=== PATIENT | male | born 1945 | race Caucasian/White ===

== ENCOUNTER → 2017-10-18 11:28 | Outpatient (CLI) | payer MEDICARE, SELFPAY ==
--- NOTE | 2017-10-18 13:10 | STRESSREP ---
Stress Test Report Treadmill EKG report: Resting EKG: Normal sinus rhythm, normal axis, normal intervals, frequent PVCs. Treadmill EKG: The patient exercise according to a Magno protocol for 6 minutes and 0 seconds achieving a workload of 7.00 mets. The resting heart rate was initially 85 beats a minute and nithya to maximum of 1 48 bpm representing 99% of the maximal age-predicted heart rate. Resting blood pressure was 140/78 and nithya to maximum 176/70. Test was terminated due to the attainment of target heart rate and leg dragging due to the patient's Parkinson's disease. During exercise the patient's heart rate increased as expected. During exercise the patient had frequent PVCs, ventricular trigeminy, ventricular couplets, but no dynamic EKG changes. During recovery the patient had reversion back to ventricular bigeminy until around 5 minutes into recovery. The patient did have 4 beats of wide-complex tachycardia during recovery at 8 minutes 38 seconds. Conclusions: Normal adequate treadmill EKG. No anginal symptoms noted. Negative for ischemia by EKG criteria. Frequent PVCs and 4 beats of wide-complex ventricular rhythm during recovery which may represent ischemia. Average exercise capacity for age. Appropriate blood pressure response to exercise. Recommend clinical correlation or alternative mode of testing if coronary ischemia is strongly suspected, particularly in light of frequent PVCs, ventricular bigeminy, and 4 beats of wide-complex rhythm during recovery.
--- NOTE | 2017-10-18 13:15 | STRESSREP_ITS ---
Stress Test Report Treadmill EKG report: Resting EKG: Normal sinus rhythm, normal axis, normal intervals, frequent PVCs. Treadmill EKG: The patient exercise according to a Magno protocol for 6 minutes and 0 seconds achieving a workload of 7.00 mets. The resting heart rate was initially 85 beats a minute and nithya to maximum of 1 48 bpm representing 99% of the maximal age-predicted heart rate. Resting blood pressure was 140/78 and nithya to maximum 176/70. Test was terminated due to the attainment of target heart rate and leg dragging due to the patient's Parkinson's disease. During exercise the patient's heart rate increased as expected. During exercise the patient had frequent PVCs, ventricular trigeminy, ventricular couplets, but no dynamic EKG changes. During recovery the patient had reversion back to ventricular bigeminy until around 5 minutes into recovery. The patient did have 4 beats of wide-complex tachycardia during recovery at 8 minutes 38 seconds. Conclusions: Normal adequate treadmill EKG. No anginal symptoms noted. Negative for ischemia by EKG criteria. Frequent PVCs and 4 beats of wide- complex ventricular rhythm during recovery which may represent ischemia. Average exercise capacity for age. Appropriate blood pressure response to exercise. Recommend clinical correlation or alternative mode of testing if coronary ischemia is strongly suspected, particularly in light of frequent PVCs , ventricular bigeminy, and 4 beats of wide-complex rhythm during recovery.
== END ==
PROVIDERS: Family Provider Family Medicine; PCP Family Medicine; Visit Provider Internal Medicine Cardiovascular Disease
DX: I25.10 Atherosclerotic heart disease of native coronary artery without angina pectoris (principal); I49.9 Cardiac arrhythmia, unspecified; I10 Essential (primary) hypertension
CPT/HCPCS: 93017

== ENCOUNTER 2019-09-25 11:21 | Day surgery (SDC) | payer MEDICARE, SELFPAY ==
--- NOTE | 2019-09-25 | SEP_PTH ---
PATIENT: DAWIT HASKINS LOC: [facility] [place] U#:[id number] AGE/SX: 73/M ROOM: RE09/25/[address]: Dr. Ovi Juares MD : 1945 BED: DIS: 09/25/2019 SPEC #: [id number] RECD: 09/27/19 16:48 STATUS: ALVERTO RENick #: [id number] MANDY: 09/25/19 00:[address]: Ovi Juares DEPT: SURGICAL PATHOLOGY RECD BY: Anton Marin ENTERED: 09/28/19 09:22 SP TYPE: SEPTUM OTHR DR: Dr. Leonid Escamilla MD Tissues: A - Ethmoid sinus, NOS B - Ethmoid sinus, NOS C - Nasal septum, NOS Procedures: Decalcification bone/plaque Surgery Specimen Level III HEADER OPERATION: Septoplasty PRE-OP DIAGNOSIS: Deviated nasal septum; chronic ethmoidal sinusitis; chronic bilateral maxillary sinusitis TISSUE SUBMITTED: A - Right sinus contents, B - Left sinus contents, C - Septoplasty contents MICROSCOPIC DIAGNOSIS A. Right sinus contents, biopsy: Consistent with chronic sinusitis. Minute fragments of bone with no pathologic change. B. Left sinus contents, biopsy: Consistent with chronic sinusitis. Minute fragments of bone with no pathologic change. C. Nasal cartilage and bone, septoplasty: Fragments of benign hyaline cartilage and bone (clinically deviated septum). AM:alexander 10/01/19 MICROSCOPIC DESCRIPTION Slides are reviewed. GROSS DESCRIPTION A - Received in fixative is one container labeled with the patient's name and designated right sinus contents. The specimen consists of multiple irregular fragments of light to dark miles soft tissue that in aggregate measure 5 x 3 x 2 cm. [employer] portions are submitted in one cassette after decalcification. B - Received in fixative is one container labeled with the patient's name and designated left sinus contents. The specimen consists of multiple irregular fragments of light to dark miles soft tissue that in aggregate measure 6 x 4 x 2 cm. [employer] portions are submitted in one cassette after decalcification. C - Received in fixative is one container labeled with the patient's name and designated septoplasty contents. The specimen consists of multiple irregular fragments of light to dark miles bone and cartilage that in aggregate measure 3 x 2 x 0.3 cm. [employer] portions are submitted in one cassette after decalcification. / AM:alexander 09/28/19 TC: CPT: 31012 x3, 68292 x3
--- NOTE | 2019-09-25 11:40 | EKG12_ITS ---
Test Reason : PREOP Blood Pressure : / mmHG Vent. Rate : 055 BPM Atrial Rate : 055 BPM P-R Int : 140 ms QRS Dur : 092 ms QT Int : 468 ms P-R-T Axes : -02 013 064 degrees QTc Int : 447 ms Sinus bradycardia Otherwise normal ECG Confirmed by DICKSON MIRZA, DANDY ([id number]), pictures editor AISHA GONZALES ([id number]) on 09/30/2019 2:08:15 PM Referred By: Ovi Juares Confirmed By:DANDY FORMAN MD
[2019-09-25 11:58] VITALS: BP 153/85; PULSE 58; RESP 16; TEMP 36.5; O2SAT 98; BMI 23.0
[2019-09-25 11:59] LABS: Hematocrit 45.7 % (40-54); Hemoglobin 15.1 g/dL (13.0-16.5); Mean Corpuscular Hgb 29.3 pg (27.0-32.0); Mean Corpuscular Volume 88.6 fL (80-94); Platelet Count 286 K/mm3 (150-450); RBC Distribution Width CV 12.7 % (11.6-14.6); RBC Distribution Width SD 41.1 fl (35.1-43.9); Red Blood Count 5.16 M/mm3 (4.6-6.2); White Blood Count 8.7 K/mm3 (4.4-11.0)
[2019-09-25] MEDS: Lactated Ringers 1,000 ML 100 ML IV (12:04)
[2019-09-25 12:30] LABS: Anion Gap 5 (5-15); BUN 16 mg/dL (7-18); BUN/Creat Ratio 17.2 RATIO (10-20); Calcium,Total 8.9 mg/dL (8.5-10.1); Chloride 106 mmol/L (98-107); Creatinine, Serum 0.93 mg/dL (0.70-1.30); EST Glomerular Filtration Rate 85 mL/min (>60); Est Glom Filt Rate - Afr Amer 102 mL/min (>60); Estimated Creatinine Clearance 63.84 ml/min; Glucose 100 mg/dL (74-106); Potassium 4.2 mmol/L (3.5-5.1); Sodium Level 140 mmol/L (136-145)
[2019-09-25] MEDS: Lidocaine 4% 50 ML Bottle TOPICAL (13:30)
[2019-09-25] MEDS: Oxymetazoline 0.05% 1 SPRAY SPRAY.BTL 15 SPRAY (13:39)
[2019-09-25] MEDS: Bacitracin 500 UNITS/GM PACKET (13:39)
--- NOTE | 2019-09-25 14:44 | OP.PCM_ITS ---
Problem List (1) Deviated nasal septum Status: Chronic (2) Chronic maxillary sinusitis Status: Chronic (3) Chronic ethmoidal sinusitis Status: Chronic Report of Operation Date of Procedure: 09/25/19 Pre-Operative Diagnosis: Deviated nasal septum, chronic ehtmoid and maxillary sinusitis Post-Operative Diagnosis: Same Surgery/Procedure Performed:: Septoplasty, bilateral endoscopic maxillary antrostomies, total ethmoidectomies Description of Surgical Findings:: Jcarlos is a 73-year-old male who presents for evaluation of chronic sinusitis failing relief with medical therapy. Examination and CT scan confirmed bilateral chronic maxillary and ethmoid sinus disease and right deviation of nasal septum and the above procedure was offered in hopes of improvement. The risks, alternatives, potential complications, and benefits were discussed at length and any questions answered to the patient and/or caregiver's satisfaction. Witnessed informed consent was obtained in the office, and the patient and/or caregiver was agreeable to proceed. Procedure went as follows: The patient was identified in the preoperative holding and brought to the operating room, was placed under general anesthesia and intubated. When appropriate anesthesia was obtained, pledgets soaked in a 50-50 mixture of oxymetazoline and 4% topical lidocaine were placed to decongest the nasal mucosa. The nasal septum was then injected beginning on the left side with 1% lidocaine with 100,000 epinephrine for a total of 5 mL. The pledgets were then removed and the left nasal cavity examined. There was noted to be significant nasal septal deviation to the [right]. Using a 15 blade scalpel, a hemitransfixion incision was then made on the left side and using the Petroleum elevator a subperichondrial/periosteal flap was elevated. The septum was then transected at the bony cartilaginous junction and a similar flap raised on the contralateral side. Using a Mike forceps, the septum was then sharply transected superiorly and the deviated portions removed with a Forrest forceps. Any inferior bony spur was then removed with a chisel allowing for midline placement of the nasal septum. The hemitransfixion incision was then closed with interrupted 4-0 chromic gut suture followed by a 4-0 plain quilting suture to reapproximate the mucosal flaps. Attention was then turned to the sinus surgery portion of the procedure. Beginning on the left side using a 0? endoscope the nasal cavity examined. The insertion of the middle turbinate and uncinate process was then injected with 1% lidocaine with 100,000 epinephrine for a total of 2 mL, and a similar injection was then carried on the contralateral side. Upon returning to the left side, the middle turbinate was medialized with a Lucius elevator. This allowed examination of the maxillary sinus ostia which was then probed with a double ball seeker. The uncinate process was then outfractured with a J curette and transected with a backbiting forceps. This was then removed with the microdebrider creating a wide maxillary antrostomy. The ethmoid bulla was then entered and a total ethmoidectomy was then carried out working posteriorly to anterior. Any polyps, scar, and mucous secretions were removed. Pledgets soaked in oxymetazoline were then placed for hemostasis and attention turned to the contralateral side. Similar procedure and findings were then carried out. Floseal hemostatic agent was then applied. An NG tube was then placed to decompress the stomach and the patient returned to anesthesia, revived and extubated having tolerated the procedure well. Grimm splints coated with Bacitracin ointment were then applied to each nasal cavity and secured at the columella with a single 3-0 Prolene suture. Type of Anesthesia:: General Anesthesiologist: Garrett Seth Special Medications: none Specimen's removed: septal and sinus contents Drains: none Estimated Blood Loss (mL): 250 mL Fluids Replaced: 800 mL Grafts/Implants Used: Grimm splints - Complications none - Admit VTE Documentation VTE Present on Admission: No VTE Mechan Device Prophylaxis: SCD's VTE Pharm Prophylaxis ordered?: No
--- NOTE | 2019-09-25 14:49 | DCINST_ITS ---
- Discharge Diagnoses Current Active Problems: Current Active and Chronic Problems Deviated nasal septum (Chronic) Chronic maxillary sinusitis (Chronic) Chronic ethmoidal sinusitis (Chronic) You will use the following diet at home:: No restrictions Discharge Activity: Return to Normal Activity, May not drive while taking narcotic pain medications. Call your doctor if your incision/area has: Sudden Increased Bleeding, Foul Smelling Discharge Call your doctor if you observe: Fever of 101 or Higher, Uncontrolled pain Allergies/Adverse Reactions: Allergies No Known Allergies Allergy (Verified 09/25/19 11:48) Medications to take at Discharge Carbidopa/Levodopa [Carbidopa-Levodopa 25-100 Tab] 2 ea PO TID 09/24/19 Carvedilol [Coreg] 6.25 mg PO BID 09/24/19 Pravastatin 10 mg PO QHS 09/24/19 Selegiline HCl 5 mg PO BID 09/24/19 Primary Care Physician: Leonid Escamilla MD [Primary Care Provider] - Test Results: Test results from this visit will be discussed in further detail at your follow- up appointment, if applicable. Please Follow Up With: Ovi Juares MD When: 5 days
[2019-09-25 14:54] VITALS: BP 128/75; BP 153/85; PULSE 72; RESP 14; TEMP 36.3; O2SAT 97
[2019-09-25 15:00] VITALS: BP 124/75; BP 153/85; PULSE 66; RESP 16; O2SAT 98
[2019-09-25 15:15] VITALS: BP 145/75; BP 153/85; PULSE 62; RESP 16; O2SAT 98
[2019-09-25 15:35] VITALS: BP 153/81; BP 153/85; PULSE 64; RESP 16; TEMP 36.4; O2SAT 96
[2019-09-25 16:28] VITALS: BP 142/68; BP 153/85; PULSE 70; RESP 18; TEMP 36.6; O2SAT 96
== END 2019-09-25 16:32 | disposition home or self-care (01) ==
LOC: SDC 11:23 → AC 11:30
PROVIDERS: Anesthesiology; PCP Family Medicine; Referring Provider Otolaryngology; Visit Provider Otolaryngology
PROC: (CPT 30520; principal; 2019-09-25 12:35)
PROC: (CPT 30520; 2019-09-25 12:35)
DX: J34.2 Deviated nasal septum (principal); J32.2 Chronic ethmoidal sinusitis; J32.0 Chronic maxillary sinusitis; I10 Essential (primary) hypertension; G20 Parkinson's disease; Z85.46 Personal history of malignant neoplasm of prostate; E78.00 Pure hypercholesterolemia, unspecified; I25.2 Old myocardial infarction; Z79.899 Other long term (current) drug therapy
CPT/HCPCS: 00160; 30520; 31267; 36415; 80048; 85027; 88304; 88305; 88311; 93005; J7120; J2405

== ENCOUNTER → 2022-01-15 | Outpatient (CLI) | payer MEDICARE, SELFPAY ==
--- NOTE | 2022-01-15 13:49 | CT_ITS ---
STUDY: CT PELVIS WITH CONTRAST REASON FOR EXAM: Male, 76 years old. Left groin pain RADIATION DOSAGE (If Supplied By Facility): CTDIvol = ( 5.21 ) mGy, DLP = ( 192.95 ) mGycm TECHNIQUE: Transaxial imaging of the pelvis was performed without oral contrast. 100ML OF ISOVUE 300 was administered intravenously. Individualized dose optimization techniques were used for this CT. COMPARISON: None. FINDINGS: Normal urinary bladder. Normal visualized small intestine. There is evidence of diffuse circumferential wall thickening of the rectum. Clinical correlation recommended. There are multiple colonic diverticula of the sigmoid colon consistent with chronic diverticulosis. There is no pelvic fluid. Mildly enlarged lymph nodes in both groins more prominent on the left side. There is diffuse atherosclerotic calcification of the pelvic arteries. Normal abdominal wall. There are diffuse degenerative changes of the visualized lumbar spine. CT/Pelvis WITH IV Contrast IMPRESSION: No evidence of left inguinal hernia. Small lateral inguinal lymph nodes more prominent on the left side. Diffuse circumferential wall thickening of the rectum. Clinical correlation recommended. Electronically Signed: Jose Irving MD at 14:24 EDT ,
[2022-01-15 13:56] LABS: CREATININE FINGERSTICK < 0.9 mg/dL (0.70-1.30); EGFR FINGERSTICK > 60.0000 mL/min (>60)
== END | disposition home or self-care (01) ==
PROVIDERS: PCP Student in an Organized Health Care Education/Training Program; Visit Provider Surgery
DX: R10.30 Lower abdominal pain, unspecified (principal)
CPT/HCPCS: 72193; Q9967

== ENCOUNTER 2022-02-16 08:10 | Day surgery (SDC) | payer MEDICARE, SELFPAY ==
--- NOTE | 2022-02-16 08:32 | HP.PCM_ITS ---
History and Physical Date of Admission: 02/16/[address] Ross Becker MD on 01/26/22 at 1224 Intake Chief Complaint: CT results Allergies No Known Allergies Allergy (Verified 01/18/22 08:56) Medications Pravastatin 10 mg PO QHS 09/24/19 [History Confirmed 01/18/22] carbidopa 25 mg-levodopa 100 mg tablet 2 ea PO TID 09/24/19 [History Confirmed 01/18/22] carvedilol 6.25 mg tablet 6.25 mg PO BID 09/24/19 [History Confirmed 01/18/22] selegiline HCl 5 mg capsule 5 mg PO BID parkinson's 09/24/19 [History Confirmed 01/18/22] acetaminophen 500 mg tablet 500 mg PO Q4H PRN PRN Pain Score 1-5/10 09/25/19 [Rx Confirmed 01/18/22] cholecalciferol (vitamin D3) 125 mcg (5,000 unit) capsule 5,000 unit PO 01/05/22 [History Confirmed 01/18/22] cyanocobalamin (vitamin B-12) 1,000 mcg tablet 1,000 mcg PO 01/05/22 [History Confirmed 01/18/22] gabapentin 100 mg capsule 100 mg PO 01/05/22 [History Confirmed 01/18/22] meloxicam 15 mg tablet 15 mg PO 01/05/22 [History Confirmed 01/18/22] pravastatin 10 mg tablet 10 mg PO 01/05/22 [History Confirmed 01/18/22] Assessment and Plan Assessment and Plan (1) Groin pain, chronic, left: ?Status:?Chronic (2) S/P radical cystoprostatectomy: ?Status:?Acute (3) Abnormal CT scan, colon: ?Status:?Acute ?Comment: 2021 [facility] [employer] Colonoscopy of August 14, 2012.? Screening colonoscopy.? Diverticulosis identified.? No polyps identified.? Repeat colonoscopy at 10 years Ross Becker M.D., F.A.C.S. (4) Constipation: ?Status:?Acute 01/26/22 1224 <Electronically signed by Ross Becker MD> Date Ross Becker MD cc:? Dr. Santino Sutton, DO ~* Signed Intake Intake Visit Reasons:?Discuss CT and possible c-scope Chief Complaint: CT results Facility Service Associate Required: No Is patient in pain?: No Allergies No Known Allergies Allergy (Verified 01/18/22 08:56) Medications Pravastatin 10 mg PO QHS 09/24/19 [History Confirmed 01/18/22] carbidopa 25 mg-levodopa 100 mg tablet 2 ea PO TID 09/24/19 [History Confirmed 01/18/22] carvedilol 6.25 mg tablet 6.25 mg PO BID 09/24/19 [History Confirmed 01/18/22] selegiline HCl 5 mg capsule 5 mg PO BID parkinson's 09/24/19 [History Confirmed 01/18/22] acetaminophen 500 mg tablet 500 mg PO Q4H PRN PRN Pain Score 1-5/10 09/25/19 [Rx Confirmed 01/18/22] cholecalciferol (vitamin D3) 125 mcg (5,000 unit) capsule 5,000 unit PO 01/05/22 [History Confirmed 01/18/22] cyanocobalamin (vitamin B-12) 1,000 mcg tablet 1,000 mcg PO 01/05/22 [History Confirmed 01/18/22] gabapentin 100 mg capsule 100 mg PO 01/05/22 [History Confirmed 01/18/22] meloxicam 15 mg tablet 15 mg PO 01/05/22 [History Confirmed 01/18/22] pravastatin 10 mg tablet 10 mg PO 01/05/22 [History Confirmed 01/18/22] PFSH Medical History?(Updated 01/18/22 @ 09:[address] Ross Becker MD) DDD (degenerative disc disease) High cholesterol HTN (hypertension) Parkinsons disease Surgical History?(Updated 01/05/22 @ 09:01 by Bernadette Garcia) S/P excision of lipoma S/P radical cystoprostatectomy S/P tonsillectomy and adenoidectomy Status post inguinal hernia repair Status post nasal septoplasty Family History? Mother Heart disease Hypertension Social History? Smoking Status:? Never smoker alcohol intake:? current HPI HPI HPI: DAWIT HASKINS, is a 76 M who presents to the office today forDiscussion regarding his chronic left groin pain.? I initially had an opportunity to see him in the office on January 05, 2022.? He was referred by Dr. Santino Sutton.? The patient has had a history of a prostatectomy.? I was able to assist him with a right inguinal herniorrhaphy in 2012 in [place] fashion.? More recently Dr. Carlos Alberto Starr on February 26, 2018 did a left inguinal hernia repair with a plug and patch technique.? The patient presented complaining intermittent bulging and tenderness in the left groin.To help evaluate the situation I obtained a pelvic CT on January 15, 2022 at the [facility].? This demonstrated nonspecific mildly enlarged lymph nodes in both groins slightly more prominent on the left.? Colonic diverticulosis.? No evidence for left inguinal hernia.? I myself however can see the mesh plug.? In addition there is felt to be diffuse circumferential wall thickening of the rectum.? Clinical correlation was felt to be pertinent. Patient states that his last screening colonoscopy was probably 8 years ago.? He is somewhat anxious today.? Noting that the pain in the left lower quadrant groin area comes and goes.? Currently he is comfortable. States he had his prostatectomy when he was 65.? There would be no current reason for him to have acute rectal wall thickening though this may still be a result of that previous surgery.? He is having increased problems with constipation however.? He attributes this to his Parkinson's disease. ROS General General: No weight change, appetite, fatigue, colon cancer, breast cancer or weakness HEENT HEENT: No difficulty swallowing, eye injury, eye surgery, swollen glands or hoarseness Endo Endocrine: No thyroid disease, diabetes mellitus, thyroid cancer, Hair loss, heat intolerance or cold intolerance Skin Skin: No rash or changing moles Breast Breast: No left breast lump, right breast lump, nipple discharge, breast pain, abnormal mammogram, abnormal US or breast enlargement Musc Musculoskeletal: No back problems, arthritis, rheumatoid arthritis, gout or joint pain Cardio Cardiovascular: No murmur, pacemaker, heart disease, atrial fibrillation, high blood pressure, heart attack, heart stent, palpitations, shortness of breat with exertion or chest pain Psych Psychiatric: No depression, anxiety or hearing voices Resp Respiratory: No shortness of breath, No sleep apnea, No cough, No COPD, No asthma, No emphysema and No wheezing Gastro Gastrointestinal: Yes abdominal pain, No nausea or vomiting, No diarrhea, No constipation, No blood in stool, No acid reflux, No hemorrhoids, No ulcers, No gallbladder problem and No black,tarry stools Johnny Hematologic: No blood thinners, No blood disorders, No bleeding, No anemia and No blood clots Neuro Neurologic: No system reviewed and no additional complaints, except as documented, No as per HPI, No abnormal gait, No abnormal hearing, No abnormal movements, No abnormal speech, No behavioral changes, No burning sensations, No confusion, No convulsions, No disequilibrium, No dizziness, No localized weakness, No frequent falls, No headache(s), No lack of coordination, No loss of vision, No memory loss, No numbness, No other visual disturbances, No radicular pain, No restless legs, No sensory deficit, No syncope, No tingling, No tremor(s), No weakness and No other Exam Const General: cooperative and anxious Nutritional Appearance: underweight HENMT Head: normal to inspection Eyes General: appearance normal, both eyes and all related structures Chest Chest palpation & inspection: normal inspection of the chest Resp Effort & Inspection: normal respiratory effort Auscultation: clear to auscultation bilaterally Cardio Rate: regular rate Rhythm: regular rhythm GI Inspection: normal to inspection Other: Soft, nontender Neuro General: patient alert, patient awake and patient oriented x3 Extrem General: no calf tenderness Psych Affect: anxious affect Assessment and Plan Assessment and Plan (1) Groin pain, chronic, left: ?Status:?Chronic ?Plan: I suspect that the patient's left groin pain is 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 If symptoms persist he likely will require pain specialty referral. (2) S/P radical cystoprostatectomy: ?Status:?Acute (3) Abnormal CT scan, colon: ?Status:?Acute ?Plan: The patient is abnormal CT imaging of the rectum likely related to his history of prostatectomy. (4) Constipation: ?Status:?Acute Plan The patient is complaining of progressive constipation.? Has had a previous history of prostatectomy albeit remote.? Abnormal CT imaging with rectal wall thickening.? Left lower quadrant/groin pain with no recurrent hernia identified on CT.? With that in mind I am recommending to him a colonoscopy with possible biopsy or polypectomy as indicated.? He has had an opportunity to ask and have questions answered.? He would definitely like to have Dr. Santino Sutton's off ice made aware of this plan of approach and we will do so.? He has had an opportunity to ask and have questions answered.? We will schedule and proceed at his discretion. Copy: Dr. Santino Becker M.D., F.A.C.S I have re-examined the patient. There are no clinical changes since date of exam. Ross Becker M.D., F.A.C.S.
[2022-02-16 08:52] VITALS: BP 121/50; PULSE 56; RESP 18; TEMP 36.2; O2SAT 100; BMI 21.6
[2022-02-16] MEDS: Lactated Ringers 1,000 ML 15 ML IV (09:01)
--- NOTE | 2022-02-16 10:09 | OP.COLON_ITS ---
Patient Name: Jcarlos Infante Procedure Date: 02/16/2022 9:36 AM Date of : 1945 Age: 76 Procedure: Colonoscopy Indications: Abdominal pain in the left lower quadrant Providers: Ross Becker MD Medicines: See the Anesthesia note for documentation of the administered medications Patient Profile: Last Colonoscopy: June 2013. Complications: No immediate complications. Procedure: Pre-Anesthesia Assessment: - Prior to the procedure, a History and Physical was performed, and patient medications and allergies were reviewed. The patient's tolerance of previous anesthesia was also reviewed. The risks and benefits of the procedure and the sedation options and risks were discussed with the patient. All questions were answered, and informed consent was obtained. Prior Anticoagulants: The patient has taken no previous anticoagulant or antiplatelet agents. ASA Grade Assessment: III - A patient with severe systemic disease. After reviewing the risks and benefits, the patient was deemed in satisfactory condition to undergo the procedure. After I obtained informed consent, the scope was passed under direct vision. Throughout the procedure, the patient's blood pressure, pulse, and oxygen saturations were monitored continuously. The Colonoscope was introduced through the anus and advanced to the cecum, identified by appendiceal orifice and ileocecal valve. The colonoscopy was performed with moderate difficulty due to inadequate bowel prep. The patient tolerated the procedure well. The quality of the bowel preparation was poor. Scope In: 9:44:52 AM Scope Withdrawal Time 0 hours 8 minutes 15 seconds Scope Out: 10:03:06 AM Total Procedure Duration Time 0 hours 18 minutes 14 seconds Findings: The digital rectal exam findings include non-thrombosed internal hemorrhoids and internal hemorrhoids that prolapse with straining, but spontaneously regress to the resting position (Grade II). A 6 mm polyp was found in the mid transverse colon. The polyp was semi-pedunculated. The polyp was removed with a hot snare. Resection and retrieval were complete. Multiple diverticula were found in the sigmoid colon and descending colon. A moderate amount of stool was found in the recto-sigmoid colon, in the sigmoid colon, in the descending colon and in the transverse colon, precluding visualization. Impression: - Preparation of the colon was poor. - Non-thrombosed internal hemorrhoids and internal hemorrhoids that prolapse with straining, but spontaneously regress to the resting position (Grade II) found on digital rectal exam. - One 6 mm polyp in the mid transverse colon, removed with a hot snare. Resected and retrieved. - Diverticulosis in the sigmoid colon and in the descending colon. - Stool in the recto-sigmoid colon, in the sigmoid colon, in the descending colon and in the transverse colon. Recommendation: - Discharge patient to home. - Resume previous diet. - Continue present medications. - Telephone my office for pathology results in 1 week. - Repeat colonoscopy in 5 years for surveillance based on pathology results. No rectal wall thickening or findings that would correlate with left groin pain or left lower quadrant pain Procedure Code(s): --- Professional --- 55787, Colonoscopy, flexible; with removal of tumor(s), polyp(s), or other lesion(s) by snare technique Diagnosis Code(s): --- Professional --- K64.1, Second degree hemorrhoids D12.3, Benign neoplasm of transverse colon (hepatic flexure or splenic flexure) R10.32, Left lower quadrant pain K57.30, Diverticulosis of large intestine without perforation or abscess without bleeding CPT copyright 2017 [employer]. All rights reserved. The codes documented in this report are preliminary and upon glass polisher review may be revised to meet current compliance requirements. Ross Becker MD 02/16/2022 10:09:30 AM This report has been signed electronically. Number of Addenda: 0 Note Initiated On: 02/16/2022 9:36 AM
--- NOTE | 2022-02-16 10:10 | OP.CCLET_ITS ---
02/16/2022 Santino Sutton [address] [place] [address] Re : Colonoscopy procedure for [facility] Dear Dr. Sutton This procedure was performed on Wednesday, February 16, 2022. My impressions and recommendations are as follows: Impressions : - Preparation of the colon was poor. - Non-thrombosed internal hemorrhoids and internal hemorrhoids that prolapse with straining, but spontaneously regress to the resting position (Grade II) found on digital rectal exam. - One 6 mm polyp in the mid transverse colon, removed with a hot snare. Resected and retrieved. - Diverticulosis in the sigmoid colon and in the descending colon. - Stool in the recto-sigmoid colon, in the sigmoid colon, in the descending colon and in the transverse colon. Recommendations : - Discharge patient to home. - Resume previous diet. - Continue present medications. - Telephone my office for pathology results in 1 week. - Repeat colonoscopy in 5 years for surveillance based on pathology results. No rectal wall thickening or findings that would correlate with left groin pain or left lower quadrant pain My findings are described in the full procedure note, which is enclosed. If I can be of further assistance, please feel free to contact me at Doctor phone number(s): Work: . Sincerely, Ross Becker MD 02/16/2022 10:09:30 AM This report has been signed electronically.
[2022-02-16 10:15] VITALS: BP 107/51; BP 121/50; PULSE 63; RESP 16; TEMP 36.7; O2SAT 100
[2022-02-16 10:20] VITALS: BP 118/63; BP 121/50; PULSE 67; RESP 16; O2SAT 100
[2022-02-16 10:25] VITALS: BP 121/50; BP 121/62; PULSE 61; RESP 16; O2SAT 100
[2022-02-16 10:30] VITALS: BP 121/50; BP 135/69; PULSE 67; RESP 16; TEMP 36.9; O2SAT 100
[2022-02-16 10:51] VITALS: BP 121/50
== END 2022-02-16 11:00 | disposition home or self-care (01) ==
LOC: EN 08:14 → AC 08:16
PROVIDERS: PCP Student in an Organized Health Care Education/Training Program; Referring Provider Student in an Organized Health Care Education/Training Program; Visit Provider Surgery
PROC: 0DJD8ZZ Inspection of Lower Intestinal Tract, Via Natural or Artificial Opening Endoscopic (ICD-10-PCS; CPT 45378; principal; 2022-02-16 09:25)
DX: K57.30 Diverticulosis of large intestine without perforation or abscess without bleeding (principal); G20 Parkinson's disease; K64.1 Second degree hemorrhoids; K63.5 Polyp of colon; I10 Essential (primary) hypertension; E78.00 Pure hypercholesterolemia, unspecified; Z79.899 Other long term (current) drug therapy
CPT/HCPCS: 45385; J7120; J2405

== ENCOUNTER 2023-02-06 06:19 | Observation (INO) | payer MEDICARE, SELFPAY ==
[2023-02-06] VITALS (8 sets, daily range): BP systolic 142–201; BP diastolic 66–94; PULSE 61–77; RESP 14–18; TEMP 36–36.6; O2SAT 95–98; BMI 49.5
--- NOTE | 2023-02-06 06:40 | CT_ITS ---
INDICATION: Back pain, previous surgery EXAMINATION: CT LUMBAR SPINE - CT Spine Lumbar W/O Contrast Injection TECHNIQUE: Helically acquired images were obtained of the lumbar spine. 2D reformats were reviewed. A radiation dose optimization technique was used for this scan. IV Contrast dosage and agent: None. COMPARISON: No comparison imaging received. FINDINGS: Patient status post remote L4 laminectomy and adjacent L3 laminotomy. There is straightening of lumbar lordosis with chronic appearing grade 1 left lateral listhesis of L3 over L4 and L4 over L5. No significant anterior or posterior subluxation. Nondisplaced fracture right L4 pedicle demonstrates thin and sharp fracture plane suggesting recent age. Chronic L3 superior endplate compression fracture resulting in mild loss of vertebral body height. There is also chronic anterior limbus defect at L3 vertebral body. Multilevel degenerative vacuum disc changes with prominent degenerative disc space narrowing at L4-5 and L5-S1. Lower lumbar degenerative facet arthropathy also noted. Circumferential disc bulging at L3-4 and L4-5 is most prominent anteriorly and laterally, with no large posterior disc bulging. Multilevel endplate spurring also present. No high-grade spinal canal stenosis. Small nonobstructing bilateral renal stones and/or renal vascular calcifications. Aortic atherosclerotic calcifications with no abdominal aortic aneurysm. CT/Spine Lumbar without Contrast IMPRESSION: 1. Acute appearing nondisplaced fracture right L4 pedicle. 2. Chronic superior endplate compression fracture and limbus defect at L3. 3. Multilevel lumbar spondylosis with grade 1 lateral listhesis of L3 over L4 and L4 over L5. There is also straightening of lumbar lordosis, possibly chronic in nature. 4. Previous laminectomy decompression L3-4. 5. Multilevel discogenic degenerative changes with disc bulging most prominent at L3-4 and L4-5. Electronically Signed: Danielito Ford MD at 7:56 EDT ,
[2023-02-06 07:06] LABS: Absolute Lymphocyte Count 0.92 X10^3/uL (0.83-4.51); Absolute Neutrophil Count 5.4 X10^3/uL (2.0-7.7); Basophil# 0.01 X10^3/uL; Basophil% 0.1 % (0-1); Eosinophil# 0.07 X10^3/uL; Hematocrit 41.4 % (40-54); Hemoglobin 13.9 g/dL (13.0-16.5); Lymphocyte # 0.92 X10^3/ul (0.83-4.51); Lymphocyte % 12.8 % (19-41); Mean Corp Hgb Conc 33.6 g/dL (32-36); Mean Corpuscular Hgb 29.9 pg (27.0-32.0); Mean Platelet Vol. 9.7 fl (6.2-12.0); Monocyte# 0.76 X10^3/uL; Monocyte% 10.5 % (0-10); NRBC Flagged by Analyzer 0 % (0-5); Neutrophil % 74.9 % (47-70); Platelet Count 250 K/mm3 (150-450); RBC Distribution Width CV 12.8 % (11.6-14.6); RBC Distribution Width SD 41.8 fl (35.1-43.9); Red Blood Count 4.65 M/mm3 (4.6-6.2); White Blood Count 7.2 K/mm3 (4.4-11.0)
[2023-02-06] MEDS: Morphine 4 MG/ML Syringe IV (07:13)
[2023-02-06] MEDS: Ondansetron 4 MG/2 ML Vial IV (07:13)
--- NOTE | 2023-02-06 07:22 | EDS_ITS ---
HPI History of Present Illness Chief Complaint: Back Informant: patient and spouse/S.O. Narrative Narrative: Patient is a 77-year-old male who lives at home with his has history of Parkinson's disease and degenerative disc disease of his lumbar spine that req uired surgery/laminectomy roughly 3 years ago. He states that he has been taking gabapentin for pain control which is helped in the past but roughly 2 weeks ago he was trying to walk when he began to lose his balance and he staggered and ran into the door of the refrigerator. He states he did not fall he was able to catch himself but he wrenched his back. He states since that time he is been taking his normal medications but pain has continued to worsen. He states he was seen at [facility] 5 days ago for the same complaint which she received Kenalog injection and pain control. He states he was feeling better and was discharged home. He denies any repeat trauma but states that the pain has returned and worsened and now he cannot stand secondary to the pain. He denies any loss of bowel or bladder control but as his pain is progressing despite home treatment he presents for evaluation. [facility] Medical History Alcohol use Ambulates with cane Arthritis Back pain Cancer Cardiology follow-up encounter DDD (degenerative disc disease) High cholesterol History of diverticulitis History of echocardiogram History of stress test HTN (hypertension) Leg cramps Non-smoker Parkinsons disease Wears glasses Home Medications Pravastatin 10 mg PO QHS 09/24/19 [History Last Taken Unknown] carbidopa 25 mg-levodopa 100 mg tablet 2 ea PO .5X/DAY 09/24/19 [History Last Taken 02/16/22] carvedilol 6.25 mg tablet 6.25 mg PO BID 09/24/19 [History Last Taken 02/16/22] selegiline HCl 5 mg capsule 5 mg PO BID parkinson's 09/24/19 [History Last Taken 02/16/22] cholecalciferol (vitamin D3) 125 mcg (5,000 unit) capsule 5,000 unit PO DAILY 01/05/22 [History Last Taken Unknown] cyanocobalamin (vitamin B-12) 1,000 mcg tablet 1,000 mcg PO DAILY 01/05/22 [History Last Taken Unknown] gabapentin 100 mg capsule 300 mg PO BID 01/05/22 [History Last Taken 02/16/22] meloxicam 15 mg tablet 15 mg PO DAILY 01/05/22 [History Last Taken Unknown] gabapentin 100 mg capsule 400 mg PO QHS 02/15/22 [History Last Taken Unknown] Allergy/AdvReac Type Severity Reaction Status Date / Time No Known Allergies Allergy Verified 02/06/23 06:27 Family History Mother Heart disease Hypertension Surgical History S/P excision of lipoma S/P radical cystoprostatectomy S/P tonsillectomy and adenoidectomy Status post inguinal hernia repair Status post nasal septoplasty Social History Smoking Status: Never smoker alcohol intake: current ROS ROS ED Constitutional Constitutional ED: Denies chills or fever(s) Eyes Eyes: Denies change in vision ENT ENT ED: Denies sore throat Cardiovascular Cardiovascular: Denies chest pain Respiratory/Chest Respiratory/Chest: Denies cough or dyspnea Gastrointestinal Gastrointestinal: Denies abdominal pain, diarrhea, nausea or vomiting Genitourinary Genitourinary ED: Denies dysuria Musculoskeletal Musculoskeletal: Reports back pain Integumentary Denies rash Neurologic Neurologic: Reports paresthesias and weakness; Denies headache(s) Hematologic/Lymphatic Hematologic/Lymphatic: Denies easy bleeding or easy bruising EXAM Physical Exam Const Vital Signs: 02/06/23 06:21 02/06/23 06:26 Temperature 97.7 F L Temperature Source Temporal Pulse Rate 77 Respiratory Rate 16 Blood Pressure 201/66 H Blood Pressure Mean 111 Pulse Ox 97 Oxygen Delivery Method Room Air Positive well nourished and well developed General Appearance ED: well developed HEENT Reports moist mucous membranes Eyes PERRL and EOMs intact bilaterally General Eye ED: Negative for scleral icterus Neck supple Neck Narrative: Carotid pulses equal and symmetric bilaterally Resp normal respiratory effort and clear to auscultation bilaterally Cardio regular rate and regular rhythm Rate: other Other Details: Radial pulses are plus 2 out of 4 bilaterally are equal and symmetric GI normal to inspection, nondistended, normoactive bowel sounds, non-tender, non- distended and no masses GI Narrative: No voluntary guarding or rigidity no pulsatile mass Auscultation: normoactive bowel sounds Palpation: soft Back/Spine Back/Spine Narrative: No bony deformity or step-off of the thoracic or lumbar spine. Negative straight leg raise. No clonus or Babinski. Patellar reflexes are plus 1 out of 4 bilaterally. Patient reports mild anesthesia to the right thigh compared to left Patient has plus 4 out of 5 strength bilateral lower legs is able to lift both legs against gravity with mild resistance Extremity normal to inspection Neuro oriented x3, CN's II-XII intact bilaterally and no sensory deficits noted Sensorium / Orientation: alert Psych mental status grossly normal Skin no rashes or lesions noted Skin Narrative: Dorsalis pedis pulses are plus 1 out of 4 bilaterally cap refill is slightly prolonged at 3 seconds MDM MDM MDM Narrative Medical decision making narrative: Patient presented to the ER hypertensive but is in pain and this is to be expected. He reports a history of longstanding back issues that required surgery 3 years ago but no recent surgeries there my concern for discitis is low. He also denies any loss of bowel or bladder control or IV drug use or concern for cauda equina or epidural abscess is reduced. Pressure is elevated but the pain is only in the back not radiating to the abdomen or up into the chest and he has equal pulses in his neck and arms going against dissection. Also pain is improved at rest and worse with motion indicating this is musculoskeletal. At this time as the patient states he is unable to stand and walk and has had persistent pain for 2 weeks I will form a CT scan to look for potential compression fracture as a cause of his symptoms and basic laboratory studies will be obtained as well. Pain medication will be given in the form of IV morphine. At this time CT results and laboratory studies are still pending and therefore patient be signed out to Dr. Diaz the daytime physician and disposition can be per her discretion History & Record Review Discussion w/independent historian: Patient and Family Lab Data Attestation: I reviewed the patient's lab results. Labs: Laboratory Results - last 24 hr 02/06/23 06:57 WBC 7.2 RBC 4.65 Hgb 13.9 Hct 41.4 MCV 89.0 MCH 29.9 MCHC 33.6 RDW Std Deviation 41.8 RDW Coeff of Ananda 12.8 Plt Count 250 MPV 9.7 Immature Gran % (Auto) 0.700 Neut % (Auto) 74.9 H Lymph % (Auto) 12.8 L [place] % (Auto) 10.5 H Eos % (Auto) 1.0 Baso % (Auto) 0.1 Absolute Neuts (auto) 5.4 Absolute Lymphs (auto) 0.92 Nucleated RBC % 0 Sodium 141 Potassium 4.1 Chloride 112 H Carbon Dioxide 26.0 Anion Gap 3 L BUN 19 H Creatinine 1.03 Estim Creat Clear Calc 52.25 Est GFR (MDRD) Af Amer 90 Est GFR (MDRD) Non-Af 74 BUN/Creatinine Ratio 18.4 Glucose 110 H Calcium 8.7 Magnesium 2.4 C-React Prot Ext Range < 2.90 Discharge Plan Triage Chief Complaint: Back ED Provider: Lawrence Munoz Dx/Rx/DC Orders Clinical Impression: Acute exacerbation of chronic low back pain, DDD (degenerative disc disease), HTN (hypertension), Parkinson's disease Prescriptions: No Action gabapentin 100 mg capsule 300 mg PO BID Patient Comments: take 3 capsules by mouth every morning 3 capsules EVERY AFTERNOON and 3 capsu les at bedtime meloxicam 15 mg tablet 15 mg PO DAILY Patient Comments: take 1 tablet by mouth once daily with food cholecalciferol (vitamin D3) 125 mcg (5,000 unit) capsule 5,000 unit PO DAILY Patient Comments: take 1 capsule by mouth once daily WITH A MEAL cyanocobalamin (vitamin B-12) 1,000 mcg tablet 1,000 mcg PO DAILY Patient Comments: take 1 tablet by mouth once daily carvedilol 6.25 MG tablet 6.25 mg PO BID carbidopa-levodopa 1 EACH tablet 2 ea PO .5X/DAY selegiline HCl 5 MG capsule 5 mg PO BID Pravastatin 10 mg PO QHS gabapentin 100 mg Capsule 400 mg PO QHS Primary Care Provider: Santino Sutton Referrals: Santino Sutton DO [Primary Care Provider] -
[2023-02-06 07:34] LABS: Anion Gap 3 (5-15); BUN 19 mg/dL (7-18); BUN/Creat Ratio 18.4 RATIO (10-20); CRP < 2.90 mg/L (0.0-3.0); Calcium,Total 8.7 mg/dL (8.5-10.1); Chloride 112 mmol/L (98-107); Creatinine, Serum 1.03 mg/dL (0.70-1.30); EST Glomerular Filtration Rate 74 mL/min (>60); Est Glom Filt Rate - Afr Amer 90 mL/min (>60); Estimated Creatinine Clearance 52.25 ml/min; Glucose 110 mg/dL (74-106); Magnesium 2.4 mg/dL (1.6-2.6); Potassium 4.1 mmol/L (3.5-5.1); Sodium Level 141 mmol/L (136-145)
[2023-02-06] MEDS: cycloBENZAPRine HCl 10 MG Tablet PO (08:54)
[2023-02-06] MEDS: fentaNYL 100 MCG/2 ML Ampul 25 MCG IV (08:55)
[2023-02-06 09:06] LABS: Erythrocyte Sedimentation Rate 3 mm/hr (0-20)
--- NOTE | 2023-02-06 10:37 | NURSING ---
MED SURG OBS GAXIOLA INTRACTABLE BACK PAIN
--- NOTE | 2023-02-06 10:47 | NURSING ---
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
--- NOTE | 2023-02-06 11:12 | HP.PCM.HOS_ITS ---
HPI - General General Date of Admission: 02/06/23 Date of Service: 02/06/23 Chief Complaint: Back pain HPI Narrative DAWIT HASKINS, is a 77 M with a history of Parkinson's disease, hypertension, degenerative disc disease with history of lumbar surgery presented to [facility] 02/06/2023 with intractable back pain.He endorsed about 2 weeks ago he had difficulty with his gait and feet and body wanted to go a different direction, when he grabbed onto something and twisted he injured his back and it slowly worsened. On Saturday he went to the [facility] for the pain and was given a shot of steroids and a pain medication injection and sent home to resume his home Neurontin that he takes chronically for pain. Due to continued worsening pain and feeling generally weak he presented to the [facility] ER. In the ER he was given medication for pain control and had a CT of his lumbar spine which showed evidence of a nondisplaced pedicle fracture of L4. ED physician spoke with Dr. Vásquez who reviewed the CT images and he stated it was a stable fracture that did not need any intervention. Due to patient being on standing his feet and feeling generally weak as well as the pain hospitalist contacted for admission. Patient evaluated with family member at bedside and he endorsed history as above. He said at baseline from his Parkinson's he will get really bad cramping in his right leg but sometimes will cause it to give out. Additionally intermittently has some tingling on the bottom of his left foot when he stands that has been somewhat more frequent since the fall but comes and goes. Denied any new changes in bowel or bladder. [facility] Medical History Alcohol use Ambulates with cane Arthritis Back pain Cancer Cardiology follow-up encounter DDD (degenerative disc disease) High cholesterol History of diverticulitis History of echocardiogram History of stress test HTN (hypertension) Leg cramps Non-smoker Parkinsons disease Wears glasses Home Medications carbidopa 25 mg-levodopa 100 mg tablet 2 tab PO 5X/DAY 09/24/19 [History Last Taken 02/06/23] carvedilol 6.25 mg tablet 6.25 mg PO BID 09/24/19 [History Last Taken 02/06/23] selegiline HCl 5 mg capsule 5 mg PO BID parkinson's 09/24/19 [History Last Taken 02/06/23] cyanocobalamin (vitamin B-12) 1,000 mcg tablet 1,000 mcg PO DAILY 01/05/22 [History Last Taken 02/05/23] meloxicam 15 mg tablet 15 mg PO DAILY 01/05/22 [History Last Taken 02/05/23] cholecalciferol (vitamin D3) 50 mcg (2,000 unit) capsule 50 mcg PO DAILY 02/06/23 [History Last Taken 02/05/23] entacapone 200 mg tablet 200 mg PO 5X/DAY 02/06/23 [History Last Taken 02/06/23] gabapentin 400 mg capsule 400 mg PO TID 02/06/23 [History Last Taken 02/06/23] pravastatin 10 mg tablet 10 mg PO QHS CHOLESTEROL 02/06/23 [History Last Taken 02/05/23] rotigotine 4 mg/24 hour transdermal 24 hour patch (Neupro) 4 mg transdermal Q24H 02/06/23 [History Last Taken 02/06/23] tizanidine 2 mg tablet 2 mg PO Q8H PRN muscle spasticity 02/06/23 [History Last Taken 02/05/23 20:30] Allergy/AdvReac Type Severity Reaction Status Date / Time No Known Allergies Allergy Verified 02/06/23 06:27 Family History Mother Heart disease Hypertension Surgical History S/P excision of lipoma S/P radical cystoprostatectomy S/P tonsillectomy and adenoidectomy Status post inguinal hernia repair Status post nasal septoplasty Social History Smoking Status: Never smoker alcohol intake: current ROS ROS Narrative General: Denies fever/chills HENT: Denies headache, denies stuffy nose, denies sore throat EYES: Denies new changes in vision Resp: Denies cough, denies shortness of breath Cardiac: Denies chest pain GI: Denies abdominal pain, denies changes in bowel, denies nausea/vomiting : Denies changes in urination Extremity: Denies swelling MSK: Feels generalized weakness, right leg cramps on him intermittently Neuro: Occasionally gets tingling on the bottom of his left foot Heme: Denies any bleeding or bruising Skin: Denies rashes Psychiatric: No complaints voiced Vital Signs Vital Signs Vital Signs: 02/06/23 06:21 02/06/23 06:26 02/06/23 08:12 Temperature 97.7 F L Temperature Source Temporal Pulse Rate 77 62 Respiratory Rate 16 Blood Pressure 201/66 H 153/94 H Blood Pressure Mean 111 113 Pulse Ox 97 Oxygen Delivery Method Room Air 02/06/23 10:00 02/06/23 10:37 Temperature 96.8 F L Temperature Source Temporal Pulse Rate 61 61 Respiratory Rate 14 Blood Pressure 158/71 H 158/71 H Blood Pressure Mean 100 100 Pulse Ox 95 Oxygen Delivery Method Room Air Weight Weight: 135 kg Body Mass Index (BMI) 49.5 Results Lab / Micro Data 02/06/23 06:57 02/06/23 06:57 Labs: Laboratory Results - last 24 hr 02/06/23 06:57: WBC 7.2, RBC 4.65, Hgb 13.9, Hct 41.4, MCV 89.0, MCH 29.9, MCHC 33.6, RDW Std Deviation 41.8, RDW Coeff of Ananda 12.8, Plt Count 250, MPV 9.7, Immature Gran % (Auto) 0.700, Neut % (Auto) 74.9 H, Lymph % (Auto) 12.8 L, [place] % (Auto) 10.5 H, Eos % (Auto) 1.0, Baso % (Auto) 0.1, Absolute Neuts (auto) 5.4, Absolute Lymphs (auto) 0.92, Nucleated RBC % 0, ESR 3, Sodium 141, Potassium 4.1, Chloride 112 H, Carbon Dioxide 26.0, Anion Gap 3 L, BUN 19 H, Creatinine 1.03, Estim Creat Clear Calc 52.25, Est GFR (MDRD) Af Amer 90, Est GFR (MDRD) Non-Af 74, BUN/Creatinine Ratio 18.4, Glucose 110 H, Calcium 8.7, Magnesium 2.4, C-React Prot Ext Range < 2.90 Radiology Impression Lumbar Spine CT 02/06/23 06:40 IMPRESSION: 1. Acute appearing nondisplaced fracture right L4 pedicle. 2. Chronic superior endplate compression fracture and limbus defect at L3. 3. Multilevel lumbar spondylosis with grade 1 lateral listhesis of L3 over L4 and L4 over L5. There is also straightening of lumbar lordosis, possibly chronic in nature. 4. Previous laminectomy decompression L3-4. 5. Multilevel discogenic degenerative changes with disc bulging most prominent at L3-4 and L4-5. Electronically Signed: Danielito Ford MD at 7:56 EDT , Assessment & Plan Assessment/Plan (1) Acute exacerbation of chronic low back pain: (2) Parkinson's disease: PLAN: Plan #Acute back pain 2/2 Acute appearing nondisplaced fracture right L4 pedicle -CT w/ Acute appearing nondisplaced fracture right L4 pedicle, Chronic superior endplate compression fracture and limbus defect at L3, Multilevel discogenic degenerative changes with disc bulging most prominent at L3-4 and L4-5 -Additionally demonstrated the previous laminectomy decompression at L3-L4 -Spinal surgeon contacted in ED and reviewed films, no acute intervention warranted -We will admit start pain control with p.o. and IV options and will also continue home gabapentin and is on meloxicam daily, will continue this and monitor kidney function -PT consult -Fall precautions #Parkinson's disease -Continue home medications as prescribed #DVT ppx: Lovenox subcu Nettie Ellis MD Time spent in the patient's overall evaluation,decision-making process, review of diagnostic data, adjustment of management, discussion with other providers, nursing nursing and ancillary staff involved in patient's care documentation, 60 minutes Charges/Coding Visit Charges Inpatient E&M: 04891 Init Hosp L2
[2023-02-06] MEDS: Acetaminophen 500 MG Tablet 1000 MG PO ×2 (15:21→21:21)
[2023-02-06] MEDS: Carbidopa/Levodopa 25/100 Tablet PO ×2 (15:21→18:40)
[2023-02-06] MEDS: tiZANidine HCl 2 MG Tablet PO (15:46)
--- NOTE | 2023-02-06 16:20 | CHAPLAIN ---
Type of Pastoral Visit _x__ Initial Visit ___ Follow-up Visit ___ On-call Visit ___ General Patient Visit ___ Spiritual Assessment ___ Family Conference ___ Bereavement ___ Rapid Response ___ Code Blue ___ Other (describe below) Pastoral Care Referral From _x__ Patient ___ Family ___ Nurse ___ Physician ___ Nutrition And Dietetics Instructor ___ Emergency Medcl Emt ___ Other (describe below) Sacrament/Intervention _x__ Active listening ___ Anointing ___ Islam ___ Bereavement ___ Communion ___ Radha exploration ___ _x__ Life review _x__ Prayer ___ Reconciliation ___ Sacrament of Sick _x__ Supportive presence ___ Wedding ___ Other (describe below) Pastoral Comments patient is admitted due to great pain; pt states he is trying to find a place of comfort and ability to rest but so far it is not working; pt is welcoming of spiritual care and gives some life review; pt is asked about his coping methods and he responds readily about having people around and talking to people/friends; time is given to sit with patient and listen; opportunity given for pt is divert attention from his pain and unto topics of his interest; 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
[2023-02-06] MEDS: Gabapentin 400 MG Capsule PO (18:40)
[2023-02-06] MEDS: Pravastatin 20 MG Tablet 10 MG PO (21:20)
[2023-02-06] MEDS: Carvedilol 6.25 MG Tablet PO (21:22)
[2023-02-07 00:11] VITALS: BP 154/67; PULSE 51; RESP 16; TEMP 35.9; O2SAT 100
[2023-02-07] MEDS: Carbidopa/Levodopa 25/100 Tablet PO ×4 (00:11→15:35)
[2023-02-07 06:26] LABS: Anion Gap 0 (5-15); BUN 26 mg/dL (7-18); BUN/Creat Ratio 23.9 RATIO (10-20); Calcium,Total 8.8 mg/dL (8.5-10.1); Chloride 110 mmol/L (98-107); Creatinine, Serum 1.09 mg/dL (0.70-1.30); EST Glomerular Filtration Rate 70 mL/min (>60); Est Glom Filt Rate - Afr Amer 84 mL/min (>60); Estimated Creatinine Clearance 45.33 ml/min; Glucose 103 mg/dL (74-106); Potassium 5.1 mmol/L (3.5-5.1); Sodium Level 139 mmol/L (136-145)
[2023-02-07 06:27] VITALS: BP 184/91; PULSE 62; RESP 16; TEMP 36.4; O2SAT 96
[2023-02-07] MEDS: Acetaminophen 500 MG Tablet 1000 MG PO ×2 (06:31→12:53)
[2023-02-07] MEDS: Gabapentin 400 MG Capsule PO ×2 (06:32→12:53)
[2023-02-07 09:40] VITALS: BP 142/111; PULSE 88; RESP 18; TEMP 36.8; O2SAT 94
[2023-02-07] MEDS: Lidocaine 5% Patch 1 PATCH TOPICAL (09:44)
[2023-02-07] MEDS: Carvedilol 6.25 MG Tablet PO (09:44)
[2023-02-07] MEDS: Enoxaparin 40 MG/0.4 ML Syringe SC (09:44)
[2023-02-07] MEDS: Cholecalciferol (VIT D3) 25 MCG TABLET (1,000 UNITS) 50 MCG PO (09:46)
[2023-02-07] MEDS: Cyanocobalamin 500 MCG Tablet 1000 MCG PO (09:46)
[2023-02-07] MEDS: tiZANidine HCl 2 MG Tablet PO (11:14)
--- NOTE | 2023-02-07 11:25 | CASEMGMT ---
MIYA HOLLAND in to complete CLEMENT form at this time.? RN AMALIA explained CLEMENT for to patient, patient voiced understanding.? Patient signed CLEMENT Form and filed in chart.? Patient provided with copy of signed CLEMENT form.? Patient had no further questions or concerns.??
[2023-02-07] MEDS: Meloxicam 15 MG Tablet PO (12:53)
--- NOTE | 2023-02-07 14:14 | PCM.PN.HOSP ---
Reason for Visit Reason for Visit: Diagnoses Parkinson's disease (02/06/23) Other chronic pain (02/06/23) Low back pain, unspecified (02/06/23) Subjective Subjective Patient is feeling better today, slept well and pain is better than it was yesterday, has not been up and moved around a lot yet, waiting to work with physical therapy Objective Data Objective Data Vital Signs: Vital Signs Temp Pulse Resp BP Pulse Ox O2 Del Method 98.2 F 88 18 142/111 H 94 Room Air 02/07/23 09:40 02/07/23 09:40 02/07/23 09:40 02/07/23 09:40 02/07/23 09:40 02/07/23 09:57 Oxygen Delivery Method Room Air Weight: 56.472 kg Body Mass Index (BMI) 20.0 Intake & Output: Intake and Output for Last 24 Hours 02/05/23 02/06/23 02/07/23 23:59 23:59 23:59 Intake Total 240 / 300 350 / 350 Balance 240 / 300 350 / 350 Lab / Micro Data 02/06/23 06:57 02/07/23 04:55 Labs: Laboratory Results - last 24 hr 02/07/23 04:55: Sodium 139, Potassium 5.1, Chloride 110 H, Carbon Dioxide 29.0, Anion Gap 0 L, BUN 26 H, Creatinine 1.09, Estim Creat Clear Calc 45.33, Est GFR (MDRD) Af Amer 84, Est GFR (MDRD) Non-Af 70, BUN/Creatinine Ratio 23.9 H, Glucose 103, Calcium 8.8 Physical Exam Narrative General: Alert, oriented, no apparent distress HEENT: Atraumatic, normocephalic Eyes: Anicteric, normal conjunctiva, extraocular movements grossly intact Neck: Supple Respiratory: Clear to auscultation bilaterally, normal respiratory effort Cardiovascular: Regular rate and rhythm GI: Soft, nontender, nondistended Extremities: No edema Musculoskeletal: Moving all extremities Neuro: No overt focal neurological deficits Skin: No rashes appreciated Psych: Cooperative Assessment & Plan Assessment/Plan (1) Acute exacerbation of chronic low back pain: (2) Parkinson's disease: PLAN: Plan #Acute back pain 2/2 Acute appearing nondisplaced fracture right L4 pedicle -CT w/ Acute appearing nondisplaced fracture right L4 pedicle, Chronic superior endplate compression fracture and limbus defect at L3, Multilevel discogenic degenerative changes with disc bulging most prominent at L3-4 and L4-5 -Additionally demonstrated the previous laminectomy decompression at L3-L4 -Spinal surgeon contacted in ED and reviewed films, no acute intervention warranted -We will admit start pain control with p.o. and IV options and will also continue home gabapentin and is on meloxicam daily, will continue this and monitor kidney function -PT consult -Fall precautions -02/07: Supple last night, pain improving today, patient work with physical therapy #Parkinson's disease -Continue home medications as prescribed #DVT ppx: Lovenox subcu Ntetie Ellis MD Time spent in the patient's overall evaluation,decision-making process, review of diagnostic data, adjustment of management, discussion with other providers, nursing nursing and ancillary staff involved in patient's care documentation, 36minutes Charges/Coding Visit Charges Inpatient E&M: 08527 Subs Hosp L2
--- NOTE | 2023-02-07 15:00 | CASEMGMT ---
Addendum entered by Andres Hallman 02/07/23 18:18: Script for OP therapy PT/OT received and given to pt and , who is in room w/pt at this time. Questions answered. They voice appreciation and deny having other questions/concerns. Original Note: MIYA HOLLAND NOTE: Per Elizabeth/PT, they have worked w/pt and OP therapy is recommended. MIYA HOLLAND to room. Introduced self and role. Pt sitting up in chair in room. Pt states is interested in script for OP therapy, but is not sure what location he may go to. He states his pain is manageable now, but states, I'm just so tired after such a busy day, I just want to sleep. He states his pain improved last evening after he was able to rest and thinks he will feel better once being able to sleep some again. Pt states he has a rollator @ home available, if needed. He denies having any further discharge planning needs or concerns. Dr Ellis made aware of therapy's recommendations and that pt is interested in OP therapy. Will provide pt w/script once available. Froylan FLORES RN, CM
--- NOTE | 2023-02-07 16:02 | DCINST_ITS ---
Discharge Instructions Diet Discharge Diet: No restrictions Activity Discharge Activity: Use Walker Follow Up Care Test Results: Test results from this visit will be discussed in further detail at your follow- up appointment, if applicable. Discharge Plan Admission Admit Date/Time: 02/06/23 11:10 Primary Reason for Your Visit: Back pain Attending Provider: Nettie Ellis Primary Care Provider: Santino Sutton Instructions Patient Instructions: ED Fall Prevention Additional Instructions / Restrictions: DISCHARGE INSTRUCTIONS PLEASE READ *Please take this with you to your next doctors appointment* -You came in with back pain and were found to have a nondisplaced fracture of the right L4 pedicle -Please continue your Neurontin and as needed tizanidine and would recommend taking 1000 mg of Tylenol 3 times a day for the next 4 to 5 days to help with pain control after which time you can take this as needed. It will be very importantly do not take any other products containing Tylenol/acetaminophen while taking the scheduled Tylenol and is importantly do not drink alcohol while taking Tylenol as well as this combination can be toxic to your liver -Please call your primary care provider's office upon discharge to schedule a hospital follow up within 1 week. -For any concerning signs or symptoms please call 911 or proceed to the nearest emergency department Discharge Orders/Prescriptions Prescriptions: Continued meloxicam 15 mg tablet 15 mg PO DAILY Patient Comments: PT TAKES DAILY AT 1230 cyanocobalamin (vitamin B-12) 1,000 mcg tablet 1,000 mcg PO DAILY Patient Comments: PT TAKES AT 0830 carvedilol 6.25 MG tablet 6.25 mg PO BID Patient Comments: PT TAKES AT 0830 AND 2100 carbidopa-levodopa 1 EACH tablet 2 tab PO 5X/DAY Patient Comments: PT TAKES AT 000, 0700, 1100, 1500, AND 1900 selegiline HCl 5 MG capsule 5 mg PO BID Patient Comments: PT TAKES AT 0700 AND 1230 (SECOND DOSE NO LATER THAN 1400) tizanidine 2 mg tablet 2 mg PO Q8H PRN (Reason: muscle spasticity) Patient Comments: take 1 tablet by mouth every 8 hours if needed gabapentin 400 mg capsule 400 mg PO TID Patient Comments: PT TAKES AT 0730, 1230, AND 1900 entacapone 200 mg tablet 200 mg PO 5X/DAY Patient Comments: PT TAKES AT 000, 0700, 1100, 1500, AND 1900 pravastatin 10 mg tablet 10 mg PO QHS Patient Comments: PT TAKES DAILY AT 2100 Neupro 4 mg/24 hour patch 24 hour 4 mg transdermal Q24H Patient Comments: apply 1 patch as directed once daily cholecalciferol (vitamin D3) 50 mcg (2,000 unit) capsule 50 mcg PO DAILY Patient Comments: PT TAKES AT 0830 Referrals / Follow Up: Santino Sutton DO [Primary Care Provider] - Within 1 Week Disposition Disposition (needs filled in before D/C Order can be placed): Home, Self Care
--- NOTE | 2023-02-07 16:08 | DS.PCM_ITS ---
Providers Date of Admission: 02/06/23 Date of Discharge: 02/07/23 Primary Care Physician: Dr. Santino Sutton, Reason For Visit: WEAKNESS R L4 PEDICAL FX W/INTRACTABLE PAIN Diagnosis Discharge Diagnosis (1) Acute exacerbation of chronic low back pain: Status: Chronic Code(s): M54.50 - Low back pain, unspecified; G89.29 - Other chronic pain (2) Parkinson's disease: Status: Acute Code(s): G20 - Parkinson's disease Plan #Acute on chronic back pain 2/2 Acute appearing nondisplaced fracture right L4 pedicle #Parkinson's disease Medications at Discharge Home Medications carbidopa 25 mg-levodopa 100 mg tablet 2 tab PO 5X/DAY 09/24/19 carvedilol 6.25 mg tablet 6.25 mg PO BID 09/24/19 selegiline HCl 5 mg capsule 5 mg PO BID parkinson's 09/24/19 cyanocobalamin (vitamin B-12) 1,000 mcg tablet 1,000 mcg PO DAILY 01/05/22 meloxicam 15 mg tablet 15 mg PO DAILY 01/05/22 cholecalciferol (vitamin D3) 50 mcg (2,000 unit) capsule 50 mcg PO DAILY 02/06 entacapone 200 mg tablet 200 mg PO 5X/DAY 02/06/23 gabapentin 400 mg capsule 400 mg PO TID 02/06/23 pravastatin 10 mg tablet 10 mg PO QHS CHOLESTEROL 02/06/23 rotigotine 4 mg/24 hour transdermal 24 hour patch (Neupro) 4 mg transdermal Q24H 02/06/23 tizanidine 2 mg tablet 2 mg PO Q8H PRN muscle spasticity 02/06/23 Hospital Course Summary of Care Provided Minutes Spent on Discharge: 32 Hospital Course: DAWIT HASKINS, is a 77 M with a history of Parkinson's disease, hypertension, degenerative disc disease with history of lumbar surgery presented to [facility] 02/06/2023 with intractable back pain. On Saturday he went to [place] for the pain and was given a shot of steroids and a pain medication injection and sent home to resume his home Neurontin that he takes chronically for pain. Due to continued worsening pain and feeling generally weak he presented to the [place] ER. In the ER he was given medication for pain control and had a CT of his lumbar spine which showed evidence of a nondisplaced pedicle fracture of L4. ED physician spoke with Dr. Vásquez who reviewed the CT images and he stated it was a stable fracture that did not need any intervention. Due to patient being on standing his feet and feeling generally weak as well as the pain hospitalist contacted for admission. Patient was placed on scheduled Tylenol and as needed pain medication added. Overnight he reports he slept very well, only required the tizanidine as needed for pain and did not require any of the opioids, he was able to get up and move around with therapy and felt better, patient amenable to going home with . No acute complaints on day of discharge. Physical Exam Narrative General: Alert, oriented, no apparent distress HEENT: Atraumatic, normocephalic Eyes: Anicteric, normal conjunctiva, extraocular movements grossly intact Neck: Supple Respiratory: Clear to auscultation bilaterally, normal respiratory effort Cardiovascular: Regular rate and rhythm GI: Soft, nontender, nondistended Extremities: No edema Musculoskeletal: Moving all extremities Neuro: No overt focal neurological deficits Skin: No rashes appreciated Psych: Cooperative Weight / BMI Weight Weight: 56.472 kg Body Mass Index (BMI) 20.0 ABG / Lab / Microbiology Data 02/06/23 06:57 02/07/23 04:55 Laboratory: Laboratory Results - last 24 hr 02/07/23 04:55: Sodium 139, Potassium 5.1, Chloride 110 H, Carbon Dioxide 29.0, Anion Gap 0 L, BUN 26 H, Creatinine 1.09, Estim Creat Clear Calc 45.33, Est GFR (MDRD) Af Amer 84, Est GFR (MDRD) Non-Af 70, BUN/Creatinine Ratio 23.9 H, Glucose 103, Calcium 8.8 D/C Instructions Discharge Diet: No restrictions Meaningful Use Info Meaningful Use Diagnoses (Choose all that apply): None applicable Discharge Plan Admission Admit Date/Time: 02/06/23 11:10 Primary Reason for Your Visit: Back pain Attending Provider: Nettie Ellis Primary Care Provider: Santino Sutton Instructions Patient Instructions: ED Fall Prevention Additional Instructions / Restrictions: DISCHARGE INSTRUCTIONS PLEASE READ *Please take this with you to your next doctors appointment* -You came in with back pain and were found to have a nondisplaced fracture of the right L4 pedicle -Please continue your Neurontin and as needed tizanidine and would recommend taking 1000 mg of Tylenol 3 times a day for the next 4 to 5 days to help with pain control after which time you can take this as needed. It will be very importantly do not take any other products containing Tylenol/acetaminophen while taking the scheduled Tylenol and is importantly do not drink alcohol while taking Tylenol as well as this combination can be toxic to your liver -Please call your primary care provider's office upon discharge to schedule a hospital follow up within 1 week. -For any concerning signs or symptoms please call 911 or proceed to the nearest emergency department Discharge Orders/Prescriptions Prescriptions: Continued meloxicam 15 mg tablet 15 mg PO DAILY Patient Comments: PT TAKES DAILY AT 1230 cyanocobalamin (vitamin B-12) 1,000 mcg tablet 1,000 mcg PO DAILY Patient Comments: PT TAKES AT 0830 carvedilol 6.25 MG tablet 6.25 mg PO BID Patient Comments: PT TAKES AT 0830 AND 2100 carbidopa-levodopa 1 EACH tablet 2 tab PO 5X/DAY Patient Comments: PT TAKES AT 000, 0700, 1100, 1500, AND 1900 selegiline HCl 5 MG capsule 5 mg PO BID Patient Comments: PT TAKES AT 0700 AND 1230 (SECOND DOSE NO LATER THAN 1400) tizanidine 2 mg tablet 2 mg PO Q8H PRN (Reason: muscle spasticity) Patient Comments: take 1 tablet by mouth every 8 hours if needed gabapentin 400 mg capsule 400 mg PO TID Patient Comments: PT TAKES AT 0730, 1230, AND 1900 entacapone 200 mg tablet 200 mg PO 5X/DAY Patient Comments: PT TAKES AT 000, 0700, 1100, 1500, AND 1900 pravastatin 10 mg tablet 10 mg PO QHS Patient Comments: PT TAKES DAILY AT 2100 Neupro 4 mg/24 hour patch 24 hour 4 mg transdermal Q24H Patient Comments: apply 1 patch as directed once daily cholecalciferol (vitamin D3) 50 mcg (2,000 unit) capsule 50 mcg PO DAILY Patient Comments: PT TAKES AT 0830 Referrals / Follow Up: Santino Sutton DO [Primary Care Provider] - Within 1 Week Disposition Disposition (needs filled in before D/C Order can be placed): Home, Self Care Charges/Coding Visit Charges Inpatient E&M: 62982 Disch Hosp >30min
[2023-02-07 16:12] VITALS: BP 142/111; PULSE 88; RESP 18; TEMP 36.8; O2SAT 94
== END 2023-02-07 11:15 | disposition home or self-care (01) ==
LOC: ED 09:48 → PCU 10:54
PROVIDERS: Admitting Provider Internal Medicine; Emergency Provider Emergency Medicine; PCP Student in an Organized Health Care Education/Training Program; Visit Provider Internal Medicine
DX: S32.049A Unspecified fracture of fourth lumbar vertebra, initial encounter for closed fracture (principal); G20 Parkinson's disease; G89.29 Other chronic pain; M54.50 Low back pain, unspecified; E78.00 Pure hypercholesterolemia, unspecified; I10 Essential (primary) hypertension; R53.1 Weakness; Z79.899 Other long term (current) drug therapy; X58.XXXA Exposure to other specified factors, initial encounter
CPT/HCPCS: 36415; 72131; 80048; 83735; 85025; 85652; 86140; 96372; 96374; 96375; 97162; 97166; 99221; 99285; A4216; G0378; J2405